=== PATIENT | female | born 1995 | race Caucasian/White ===

== ENCOUNTER 2022-02-08 15:51 | Emergency (ER) | payer MEDICAID ==
[2022-02-08 16:03] VITALS: BP 104/57
[2022-02-08] MEDS ORDERED: AMOXICILLIN875 MG PO (16:37)
[2022-02-08] MEDS ORDERED: DECADRON 4MG TAB4 MG PO (16:37)
== END 2022-02-08 16:40 | disposition home or self-care (01) ==
LOC: ED 15:51
DX: R05.9 Cough, unspecified (principal)